=== PATIENT | female | born 1955 | race Caucasian/White ===

== ENCOUNTER 2020-05-10 15:55 | Emergency (ER) | payer SELFPAY ==
[2020-05-10] MEDS ORDERED: Sodium Chloride 0.9% 1,000 ML ONE ×2 (16:26→17:48)
[2020-05-10] MEDS ORDERED: Ondansetron PF 4 MG/2 ML Vial ONE (16:31)
[2020-05-10] MEDS ORDERED: Lorazepam 2 MG/ML VIAL ONE (16:44)
[2020-05-10 16:55] LABS: INR-International Normal Ratio 1.8; Prothrombin Time 21.6 sec (12.0-14.7)
[2020-05-10 17:05] LABS: Hemoglobin 4.2 g/dL (12.0-16.0); Mean Corpuscular HGB CONC 32.3 g/dL (32.0-36.0); Mean Corpuscular Hemoglobin 25.5 pg (27.0-31.0); Mean Corpuscular Volume 79.1 fL (78.0-98.0); Mean Platelet Volume 11.6 fL (7.4-10.4); Platelet Count 55 thou/uL (130-400); RBC Distribution Width 15.9 % (11.5-14.5); Red Blood Cell (RBC) Count 1.65 mill/uL (4.20-5.40); White Blood Cell (WBC) Count 2.7 thou/uL (4.8-10.8)
[2020-05-10 17:06] LABS: ALT (SGPT) 6 U/L (8-55); AST (SGOT) 11 U/L (5-34); Albumin 2.2 g/dL (3.4-4.8); Alkaline Phosphatase 67 U/L (40-110); Anion Gap 22 mmol/L (10-20); Bilirubin, Total 0.9 mg/dL (0.2-1.2); CK (CPK) 53 U/L (29-168); Calc. Creatinine Clearance 0 mL/min (70-130); Calcium 7.3 mg/dL (7.8-10.44); Carbon Dioxide 17 mmol/L (23-31); Chloride 98 mmol/L (98-107); Globulin 3.6 g/dL (2.4-3.5); Glucose 133 mg/dL (80-115); Lipase 34 U/L (8-78); Magnesium 2.2 mg/dL (1.6-2.6); Potassium 3.3 mmol/L (3.5-5.1); Protein, Total 5.8 g/dL (5.8-8.1); Sodium 134 mmol/L (136-145)
[2020-05-10 17:15] LABS: #Lymphocytes 0.7 thou/uL (1.20-3.40); #Monocytes 0.2 thou/uL (0.11-0.59); #Neutrophils 1.7 thou/uL (1.40-6.50); %Basophils 1.2 % (0.0-1.0); %Eosinophils 0.1 % (0.0-10.0); %Lymphocytes 24.7 % (21.0-51.0)
--- NOTE | 2020-05-10 17:18 | CT ---
CT BRAIN NONCONTRAST: DATE: 05/10/2020 HISTORY: 65-year-old female status post head trauma due to fall FINDINGS: Some of the images are degraded by patient motion. There is no evidence of acute intra-axial or extra-axial hemorrhage. There is no midline shift or any other mass effect. There is no extra-axial fluid collection. There is no evidence of obstructive hydrocephalus. Calvarium is intact. There is diffuse brain parenchymal volume loss. There are low att enuation areas in the white matter. These are nonspecific, but in a patient of this age, they are probably chronic ischemic white matter changes due to microvascular atherosclerosis. IMPRESSION: 1) No acute intracranial findings. 2) involutional changes and chronic ischemic white matter changes.
[2020-05-10 17:29] LABS: BUN (Urea Nitrogen) 122 mg/dL (9.8-20.1)
[2020-05-10 17:43] LABS: Hypochromia SLIGHT = 6-15 cells (100X) (0-5/hpf); MDiff Complete? YES; Microcytosis SLIGHT = 6-15 cells (100X) (0-5/hpf); Platelet Morphology Comment Appears Decreased
[2020-05-10 17:49] LABS: Phosphorus 7.5 mg/dL (2.3-4.7)
[2020-05-10 17:54] LABS: Bilirubin Small (Negative); Blood, Urine Large (Negative); Clarity Clear (Clear); Glucose, Urine (Dipstick) Negative (Negative); Ketone, Urine Negative (Negative); Leukocyte Small (Negative); Nitrite Negative (Negative); Protein, Urine (Dipstick) > or equal to 300 mg/dL (Neg-Trace); Urobilinogen 0.2 mg/dL (Less than 2)
[2020-05-10 17:59] LABS: Bacteria/HPF Rare-Few HPF (None Seen); RBC/HPF 0-3 HPF (0-3); Squamous Epithelial 0-3 HPF (0-3)
[2020-05-10 18:00] LABS: Unclassified Crystals 1+ HPF (None Seen)
[2020-05-10] MEDS ORDERED: DOPamine 400 MG/D5W 250 ML 250 ML ONE (18:10)
[2020-05-10] MEDS ORDERED: Thiamine HCl 200 MG/2 ML VIAL ONE ×2 (18:13→19:00)
--- NOTE | 2020-05-10 18:22 | RAD ---
PORTABLE CHEST ONE VIEW: 05/10/20 at 6:14 p.m. HISTORY: Nausea, vomiting. FINDINGS: The heart size is normal. The aorta is tortuous. Calcified left hilar lymph node is seen. No lobar co nsolidation, pneumothoraces or pleural effusions are seen. IMPRESSION: No acute process. POS: [facility]
== END 2020-05-10 19:42 | disposition short-term general hospital (02) ==
LOC: NAV ERS 15:55
DX: D61.818 Other pancytopenia (principal); N17.9 Acute kidney failure, unspecified; E86.0 Dehydration; E46 Unspecified protein-calorie malnutrition
CPT/HCPCS: 36415; 36430; 36556; 70450; 71045; 80053; 81003; 81015; 82550; 83605; 83690; 83735; 84100; 84443; 85007; 85025; 85027; 85060; 85610; 85730; 86850; 86900; 86901; 93005; 96365; 96375; 99292; J1265; J2060; J2405; J3411; J7050; P9016